=== PATIENT | male | born 1980 | race Caucasian/White ===

== ENCOUNTER 2017-10-20 20:25 | Emergency (ER) | payer BC, OTHER ==
[~2017-10-20] VITALS: Ht 175.3 cm; Wt 65.0 kg
[~2017-10-20 20:25] MED LIST: IBUP800 PO; ROBA750T3 PO
[2017-10-20 20:35] VITALS: BP 131/74; PULSE 73; RESP 16; TEMP 97.8; O2SAT 96
[2017-10-20] MEDS ORDERED: NAPR500T2 PO (20:50)
[2017-10-20] MEDS ORDERED: PENI500T PO (20:50)
--- NOTE | 2017-10-20 20:51 | PD ---
HPI Chief Complaint: Oral / Dental Pain or Problem Time Seen by Provider: 20:41 Travel History International Travel<30 days: No Contact w/Intl Traveler<30days: No Traveled to known affect area: No History of Present Illness HPI This is a 37-year-old male who's had 3 days of pain in his right upper jaw, constant, moderate severity, throbbing, worse this evening after he laid down to sleep. He denies any associated fever or chills. He denies any swelling. He has a bad tooth on the upper jaw. He tried to make an appointment with a dentist but was unable to this evening. [facility] Past Medical History Diminished Hearing: No Social History Alcohol Use: Yes (3-4 times a week) Tobacco Use: Yes Allergies-Medications (Allergen,Severity, Reaction): Uncoded Allergies: okra (Allergy, Unknown, 10/20/17) Told as a kid Reported Meds & Prescriptions Reported Meds & Active Scripts Active No Active Prescriptions or Reported Medications Review of Systems General / Constitutional: No: Fever, Chills Gastrointestinal: No: Nausea, Vomiting Physical Exam Narrative GENERAL: Well-appearing, no acute distress, nontoxic SKIN: Warm and dry. HEAD: Atraumatic. Normocephalic. ENT: Old Fractured upper maxillary molar, tender to palpation with some erythema along the gums, no maxillary fullness, no mandibular involvement MUSCULOSKELETAL: No obvious deformities. No clubbing. No cyanosis. No edema. NEUROLOGICAL: Awake and alert. No obvious cranial nerve deficits. Motor grossly within normal limits. Normal speech. PSYCHIATRIC: Appropriate mood and affect; insight and judgment normal. Data Data Last Documented VS Vital Signs Date Time Temp Pulse Resp B/P (MAP) Pulse Ox O2 Delivery O2 Flow Rate FiO2 10/20/17 20:35 97.8 73 16 131/74 (93) 96 MDM Medical Decision Making Medical Screen Exam Complete: Yes Emergency Medical Condition: Yes Differential Diagnosis Dental pain, dental abscess, Roberto angina Narrative Course This is a 37-year-old male who presents to the emergency department with dental pain. It's been going on for 3 days. He has a old fractured upper mandibular molar which appears to have possible early dental abscess. Patient will be started on antibiotic and pain control. He will try to get into a dentist tomorrow. Diagnosis Primary Impression: Pain, dental Additional Instructions: If you develop difficulty swallowing, difficulty breathing, severe pain or increasing swelling return to the emergency room. Follow-up with a dentist as soon as possible. Med/Other Pt SpecificInfo: Prescription(s) given Scripts Penicillin V Potassium (Penicillin V Potassium) 500 Mg Tab 500 MG PO Q8H for Infection for 7 Days, #21 TAB 0 Refills Prov: Carmen Carrillo MD 10/20/17 Naproxen (Naproxen) 500 Mg Tab 500 MG PO BID Y for PAIN SCALE 4 TO 10, #20 TAB 0 Refills Prov: Carmen Carrillo MD 10/20/17 Disposition: 01 DISCHARGE HOME Condition: Stable Carmen Carrillo MD Oct 20, 2017 20:51
[2017-10-20] MEDS ORDERED: PENICILLIN V POTASSIUM 500 MG TAB PO ONE (21:00)
[2017-10-20] MEDS ORDERED: ACETAMINOPHEN/HYDROcodone 325 MG/5 MG TAB PO ONE (21:00)
== END 2017-10-20 21:25 | disposition home or self-care (01) ==
LOC: PHEFT 20:25
DX: K08.89 Other specified disorders of teeth and supporting structures (principal); Z72.0 Tobacco use
CPT/HCPCS: 99283